=== PATIENT | male | born 1950 | race Caucasian/White ===

== ENCOUNTER 2024-01-16 21:23 | Inpatient (IN) | payer MEDICARE, SELFPAY ==
[2024-01-16 17:06] VITALS: BP 157/86
[2024-01-16] MEDS: TYLENOL 1000 MG PO (17:47)
[2024-01-16 17:51] LABS: % Basophils 0.5 % (0-2); % Eosinophils 0.1 % (0-6); % Immature Granulocytes 0.9 % (0-0.5); % Lymphocytes 8.4 % (20.5-51.1); % Monocytes 6.9 % (1.7-9.3); % Neutrophils 83.2 % (42.2-75.2); Absolute Basophils 0.1 10^3/uL (0-0.2); Absolute Immature Granulocytes 0.1 10^3/uL (0-0.05); Absolute Lymphocytes 0.9 10^3/uL (1.2-3.4); Absolute Monocytes 0.7 10^3/uL (0.1-0.6); Absolute Neutrophils 8.8 10^3/uL (1.4-6.5); Hemoglobin 10.9 g/dL (13.0-18.0); Mean Corp Hgb Conc. 36.3 g/dL (33.0-37.0); Mean Corpuscular Hgb 31.9 pg (27.0-31.0); Mean Corpuscular Volume 87.7 fL (80.0-94.0); Mean Platelet Volume 9.1 fL (7.4-10.4); Nucleated Red Blood Cells % 0 % (-); Platelet Count 405 10^3/uL (130-400); Red Blood Cell Count 3.42 10^6/uL (4.70-6.10); Red Cell Dist. Width 12.8 % (11.5-14.5); White Blood Cell Count 10.5 10^3/uL (4.8-10.8)
[2024-01-16 17:59] LABS: ALT (SGPT) 107 U/L (0-50); AST (SGOT) 112 U/L (17-59); Albumin 4.2 g/dl (3.5-5.0); Alkaline Phosphatase 101 U/L (38-126); Blood Urea Nitrogen 38 mg/dl (9-20); Calcium 9.4 mg/dl (8.4-10.2); Carbon Dioxide 22 mmol/L (22-30); Chloride 103 mmol/L (98-107); Glucose 114 mg/dl (70-99); Sodium 139 mmol/L (135-145); Total Bilirubin 0.6 mg/dl (0.2-1.3); Total Protein 7.3 g/dl (6.3-8.2); eGFR > 60.00
[2024-01-16 18:46] LABS: NT-proBNP 163 pg/ml; Troponin I < 0.012 ng/ml
[2024-01-16 18:55] LABS: COVID-19 Antigen Negative (Negative)
--- NOTE | 2024-01-16 19:54 | ED.GENMED ---
History of Present Illness
General
Chief Complaint: Cough
Time Seen by Provider: 01/16/24 18:27
History of Present Illness
History of Present Illness:
Patient is a 73-year-old man with history of hypertension, hyperlipidemia, prostate cancer in remission presenting to the emergency department with difficulty breathing. Patient states that he was diagnosed with COVID on January 02. He had COVID
last year and then developed pneumonia afterwards. He went to urgent care 5 days ago who still having shortness of breath and I started him on cefdinir. Today he had worsening difficulty breathing and a cough. He went to his doctor who was
worried about pneumonia so they sent him to the emergency department. He did not have an x-ray done at outside hospital which did show pneumonia. He has been having fevers and chills. No chest pain. No pleuritic pain. No leg swelling. No
history of blood clots. No nausea no vomiting. No diarrhea.
Phy Exam
Physical Exam
Physical Exam:
GENERAL: in no acute distress
HEENT: normocephalic, extraocular movements intact, moist oral mucosa
NECK: normal inspection
RESPIRATORY: no respiratory distress, coarse breath sounds worse on the left
CARDIOVASCULAR: regular rate and rhythm
ABDOMEN/: soft, non-distended, non-tender to palpation, no rebound or guarding
EXTREMITIES: non-tender, no edema/swelling
NEUROLOGIC: awake and alert, moves all extremities
SKIN: warm
Course
Orders/Labs/Results
Orders:
Orders
01/16/24 17:14
Electrocardiogram (*1) Urgent
Reason for Study: Shortness of Breath
EKG- Treatment ONCE
01/16/24 17:38
CMP [Comprehensive Metabolic Panel] Urgent
Complete Blood Count/With Diff Urgent
01/16/24 17:46
Acetaminophen [Tylenol] 1,000 mg PO NOW STA
01/16/24 18:10
NT-proBNP Urgent
Troponin I Urgent
01/16/24 18:27
CR Chest - 2 Views Urgent
Comment:
Reason For Exam: cough
01/16/24 18:38
COVID-19 Antigen Stat
Source: Nasal Swab
01/16/24 19:53
Cefepime HCl [Maxipime] 2,000 mg IV NOW STA
Vancomycin 1500 mg IVPB NOW Vancomycin [Vancocin] 1,500 mg 0.9% Sodium Chloride [Nss] 20 ml 0.9% Sodium Chloride 250 ml [Nss] 250 ml IV NOW
Abnormal Lab Results
01/16/24
17:38
RBC 3.42 L 10^6/uL
(4.70-6.10)
Hgb 10.9 L g/dL
(13.0-18.0)
Hct 30.0 L %
(39.0-52.0)
MCH 31.9 H pg
(27.0-31.0)
Plt Count 405 H 10^3/uL
(130-400)
Abs Immat Gran (auto) 0.1 H 10^3/uL
(0-0.05)
Absolute Neuts (auto) 8.8 H 10^3/uL
(1.4-6.5)
Absolute Lymphs (auto) 0.9 L 10^3/uL
(1.2-3.4)
Absolute Monos (auto) 0.7 H 10^3/uL
(0.1-0.6)
Immature Gran % 0.9 H %
(0-0.5)
Neutrophils % 83.2 H %
(42.2-75.2)
Lymphocytes % 8.4 L %
(20.5-51.1)
BUN 38 H mg/dl
(9-20)
Glucose 114 H mg/dl
(70-99)
AST 112 H U/L
(17-59)
ALT 107 H U/L
(0-50)
01/16/24 17:38
01/16/24 17:38
Vital Signs
Initial and Last Documented VS:
Initial Vital Signs
Temp Pulse Resp BP Pulse Ox
102.2 F H 105 18 157/86 90
01/16/24 17:06 01/16/24 17:06 01/16/24 17:06 01/16/24 17:06 01/16/24 17:06
Last Documented Vital Signs
Temp Pulse Resp BP Pulse Ox
102.2 F H 88 19 157/86 90
01/16/24 17:06 01/16/24 18:45 01/16/24 18:45 01/16/24 17:06 01/16/24 18:45
MDM/Problems Addressed
Differential Diagnosis Includes:
Patient is a 73-year-old male with history of hypertension, hyperlipidemia, prostate cancer status post prostatectomy and is in currently in remission presenting to the emergency department with shortness of breath and concerns for pneumonia on an
outside x-ray. Vitals here are notable for requiring nasal cannula at 4 L. Exam does show a coarse breath sounds at the left. Concern for pneumonia. Considered PE given history of cancer plus COVID recently however less likely given clinical
picture. If chest x-ray does not show any obvious signs of pneumonia will workup PE.
Blood work obtained does show a normal white count. COVID swab is negative. Chest x-ray per my interpretation with left lower lobe pneumonia. Given that he was on outpatient antibiotics we will place patient on cefepime and give vancomycin
given the recent COVID. Discussed with hospitalist who accepted patient to their service
*Critical Care Note
Total Time (30-74mins, 75-104mins- exclusive of procedures): Not Applicable
ED Attending Note
-
Portions of this chart may have been created with voice recognition software.� Occasional wrong word or��sound alike� substitutions may have occurred due to the inherent limitations of voice recognition software.
Discharge Plan
Departure
Patient Disposition: Admit
Date of Disposition: 01/16/24
Time of Disposition: 19:59
Presentation/result/management discussed w/ accepting MD/DO: Hospitalist
Discharge Problem:
Pneumonia
Referrals:
Osmar Altamirano MD [Family Provider] -
Interventions
Interventions:
*Risk Screen - Suicide Last Done: 01/16/24 18:21
*General Assessment Last Done: 01/16/24 18:21
*Neglect/Abuse Screening Last Done: 01/16/24 18:21
ED- Fall Risk Assessment Last Done: 01/16/24 18:21
*ED COVID-19 Vaccine History Last Done: 01/16/24 18:21
ED- Pulmonary Assessment Last Done: 01/16/24 18:21
Discharge Date and Time
Print Language: DANISH
[2024-01-16] MEDS: MAXIPIME 2000 MG IV (20:08)
--- NOTE | 2024-01-16 20:27 | HPS.HSE ---
Family Physician
-
Family Physician: Osmar Altamirano
Chief Complaint
-
shortness of breath
History of Present Illness
Mr. Jony Mahajan is a 73 yo man with hx HTN, HLD, prostate cancer in remission presents to the ER with shortness of breath. Patient was diagnosed with Covid on 01/02. His symptoms initially improved then got worse and he was seen at urgent care
and started on Cefdinir 5 days ago. He was also prescribed inhalers. He has not felt better since and so came to the ER. Patient was found to be febrile to 102.2 at arrival, he had not measured a fever this high at home.
+ some nausea in the morning and he states he vomited mucus. No abdominal pain. His cough is non-productive. He cannot lay down flat or he has persistent cough. He states inhalers have not helped with his breathing. No LE swelling. No rash. No
headache.
Medical History
Past Medical History
Past Medical History: Reports HTN, Hypercholesterolemia and Other (prostate cancer, in remission )
Past Surgical History: Reports Other
Social History
Tobacco: Non-smoker
Alcohol: Occasional
Family History
Family History: Not pertinent
Allergies / Home Medications
Allergies reflects when Allergies were last updated in [facility].
Home Medications with original date entered in [facility]
Allergy/Medication List:
Allergies
Allergy/AdvReac Type Severity Reaction Status Date / Time
No Known Allergies Allergy Unverified 01/16/24 17:13
Home Medications
albuterol sulfate 90 mcg/actuation aerosol inhaler 2 puff inhalation R QIDPRN PRN cough 01/16/24
amlodipine 5 mg tablet 5 mg PO DAILY 01/16/24
benazepril 20 mg tablet 20 mg PO DAILY 01/16/24
cefdinir 300 mg capsule 300 mg PO BID 01/16/24
cholecalciferol (vitamin D3) 25 mcg (1,000 unit) tablet 25 mcg PO DAILY 01/16/24
diphenhydramine HCl 25 mg capsule (Benadryl) 25 mg PO HS 01/16/24
famotidine 20 mg tablet 20 mg PO HS 01/16/24
hydrochlorothiazide 25 mg tablet 25 mg PO DAILY 01/16/24
metformin 1,000 mg tablet 1,000 mg PO .SEE BELOW 01/16/24
simvastatin 80 mg tablet 80 mg PO HS 01/16/24
Review of Systems
-
History Source: Patient
A 12 point ROS was completed and negative except as noted: Yes
Physical Exam
Vital Signs
Vital Signs
Temp Pulse Resp BP Pulse Ox
102.2 F H 88 16 157/86 90
01/16/24 17:06 01/16/24 18:45 01/16/24 20:00 01/16/24 17:06 01/16/24 18:45
Physical Exam
General: No Apparent Distress
HEENT: PERRLA
Respiratory: Other (cough on inspiration, no wheezing)
Cardiac: S1/S2 and Regular Rhythm
GI: Soft and Non Tender
Musculoskeletal: No Edema
Skin: Warm and Dry; No Rash
Neuro: AO x 3
Psych: Calm
Laboratory Results
-
01/16/24 17:38
01/16/24 17:38
Laboratory Results
Total Bilirubin 0.6 mg/dl (0.2-1.3) 01/16/24 17:38
AST 112 U/L (17-59) H 01/16/24 17:38
ALT 107 U/L (0-50) H 01/16/24 17:38
Alkaline Phosphatase 101 U/L (38-126) 01/16/24 17:38
Troponin I < 0.012 ng/ml 01/16/24 18:10
Data Reviewed
-
Diagnostic Radiology: Report Reviewed by me
Lab Data: Labs Reviewed by me
Impression/Plan
-
Mr. Jony Mahajan is a 73 yo man with hx HTN, HLD, prostate cancer in remission presents to the ER with shortness of breath. Patient was diagnosed with Covid on 01/02. His symptoms initially improved then got worse and he was seen at urgent care
and started on Cefdinir 5 days ago. He presents to the ER with worsening cough and shortness of breath, + fevers.
Triage VS: T 102.2, P 105, RR 18, BP 157/86, SpO2 90%
LABS: WBC 10.5, Hg 10.9, PLT 405, Na 139, K+ 4.0, BUN 38, Cr 0.9, Glucose 114, T. Bili 0.6, AST 112, ALT 107, Trop < 0.012, BNP 163
covid negative
IMPRESSION:
Left basilar pneumonia.
MAR: Cefepime/Vanco
Sepsis
Left Lower Lobe Pneumonia
Hypoxic Respiratory Insufficiency
-add on lactate and blood culture (after abx given)
-admit to telemetry
-O2 support as needed, currently on 4L
-s/p Vanc/Cefepime in ER. Will add on Azithromycin for atypical coverage and continue Cefepime
-F/U MRSA swab, Legionall Ab testing and strep pneumo testing
-500cc bolus now and 1L running IVF overnight
-Mucinex BID, Acapella
Transaminitis in setting of sepsis
-no abdominal pain
-will trend
Essential Hypertension
-hold BEAM MACHINE OPERATOR HCTZ
-continue BEAM MACHINE OPERATOR Amlodipine and Benazepril, hypertensive in ER
Hyperlipidemia
-BEAM MACHINE OPERATOR Simvastatin
Metformin is on home med list but patient states he doesn't have diabetes
-F/U AM A1c
DVT PPx Lovenox subQ
FULL CODE
76 minutes spent on patient evaluation, medical decision making, coordination of care
[2024-01-16] MEDS: VANCOCIN 300 ML IV (20:39)
[2024-01-16] MEDS: VANCOCIN 300 MG IV (20:39)
[2024-01-16] MEDS: ZITHROMAX INFUSION 250 IV (20:43)
[2024-01-16] MEDS: NSS 500 IV (21:05)
[2024-01-16 21:38] LABS: Lactic Acid 1.1 mmol/L (0.7-2.0)
[2024-01-16 22:28] VITALS: BMI 24.2
[2024-01-16] MEDS: MUCINEX 600 MG PO (22:37)
[2024-01-16] MEDS: NSS 1000 IV (22:37)
[2024-01-16] MEDS: LIPITOR 40 MG PO (22:37)
[2024-01-16] MEDS: PEPCID 20 MG PO (22:37)
[2024-01-16 22:46] VITALS: BP 133/74
--- NOTE | 2024-01-17 00:07 | PTCARENOTE ---
Patient arrived to unit via stretcher with dx of LLL PNA. AAOX3. Pleasant and cooperative with care. Steady on feet and with ambulation. Harsh dry, non productive cough. 4 liter 02. Oriented to unit. Call schneider within reach. Educated that patient
must call for assistance. Patient stated understanding and compliance with call schneider.
[2024-01-17] MEDS: ROBITUSSIN DM 10 ML PO ×2 (00:33→05:41)
[2024-01-17 03:38] VITALS: BP 129/67
[2024-01-17] MEDS: MAXIPIME 2000 MG IV ×3 (05:24→21:44)
[2024-01-17] MEDS: STERILE WATER FOR INJECTION 10 ML IV ×3 (05:25→21:44)
--- NOTE | 2024-01-17 07:25 | W.PN.HOSP.TC ---
Today's Communication/Plan
-
cont abx
duoneb prn
mucinex
follow cultures MRSA screen
Assessment / Plan
Assessment / Plan
Physical Exam
General: No Apparent Distress
HEENT: PERRLA
Respiratory: cough on inspiration, no wheezing
Cardiac: S1/S2 and Regular Rhythm
GI: Soft and Non Tender
Musculoskeletal: No Edema
Skin: Warm and Dry; No Rash
Neuro: AO x 3
Psych: Calm
Mr. Jony Mahajan is a 73 yo man with hx HTN, HLD, prostate cancer in remission presents to the ER with shortness of breath. Patient was diagnosed with Covid on 01/02. His symptoms initially improved then got worse and he was seen at urgent care
and started on Cefdinir 5 days ago. He presents to the ER with worsening cough and shortness of breath, + fevers.
Triage VS: T 102.2, P 105, RR 18, BP 157/86, SpO2 90%
LABS: WBC 10.5, Hg 10.9, PLT 405, Na 139, K+ 4.0, BUN 38, Cr 0.9, Glucose 114, T. Bili 0.6, AST 112, ALT 107, Trop < 0.012, BNP 163
covid negative
IMPRESSION:
Left basilar pneumonia.
MAR: Cefepime/Vanco
Sepsis
Left Lower Lobe Pneumonia
Hypoxic Respiratory Insufficiency
-tele admit
-O2 support as needed, currently on 4L
-s/p Vanc/Cefepime in ER. continue Cefepime Azithromycin
-F/U MRSA swab, Legionall Ab testing and strep pneumo testing
-Mucinex BID, Acapella
Transaminitis in setting of sepsis
-no abdominal pain
-trend
Essential Hypertension
-hold PHYSICAL METEOROLOGIST HCTZ
-continue PHYSICAL METEOROLOGIST Amlodipine and Benazepril, hypertensive in ER
Hyperlipidemia
-PHYSICAL METEOROLOGIST Simvastatin
Prediabetic
-A1c 6.2
DVT PPx Lovenox subQ
FULL CODE
55 minutes spent on patient evaluation, medical decision making, coordination of care
Anticipated Discharge: 24 - 48 hours
Subjective/Interval History
-
Date of Service: January 17, 2024
No acute distress. Appears comfortable at this time.
Objective Data
-
Labs:
Laboratory Results
01/17/24
06:00
WBC Pending
Hgb Pending
Hct Pending
Plt Count Pending
Sodium Pending
Potassium Pending
Chloride Pending
Carbon Dioxide Pending
BUN Pending
Creatinine Pending
Glucose Pending
Calcium Pending
Total Bilirubin Pending
AST Pending
ALT Pending
Alkaline Phosphatase Pending
Vital Signs:
Vital Signs
Temp Pulse Resp BP Pulse Ox
98.1 F 91 18 129/67 93
01/17/24 03:38 01/17/24 03:38 01/17/24 03:38 01/17/24 03:38 01/17/24 03:38
I&O
01/16/24 01/17/24 01/18/24
06:59 06:59 06:59
Intake Total 240 / 240
Output Total 350 / 350
Balance -110 / -110
[2024-01-17 07:30] VITALS: BP 146/76
[2024-01-17] MEDS: VISBIOME 1 CAP PO (07:46)
[2024-01-17] MEDS: MUCINEX 600 MG PO ×2 (07:47→19:30)
[2024-01-17] MEDS: ZESTRIL 20 MG PO (07:47)
[2024-01-17] MEDS: NORVASC 5 MG PO (07:48)
[2024-01-17] MEDS: DUONEB 3 ML INH ×4 (07:51→19:32)
[2024-01-17 09:51] LABS: % Basophils 0.3 % (0-2); % Immature Granulocytes 0.6 % (0-0.5); % Lymphocytes 6.2 % (20.5-51.1); % Monocytes 4.9 % (1.7-9.3); Absolute Immature Granulocytes 0.1 10^3/uL (0-0.05); Absolute Lymphocytes 0.8 10^3/uL (1.2-3.4); Absolute Monocytes 0.7 10^3/uL (0.1-0.6); Absolute Neutrophils 11.9 10^3/uL (1.4-6.5); Hematocrit 31.6 % (39.0-52.0); Hemoglobin 10.9 g/dL (13.0-18.0); Mean Corp Hgb Conc. 34.5 g/dL (33.0-37.0); Mean Corpuscular Hgb 32.3 pg (27.0-31.0); Mean Corpuscular Volume 93.8 fL (80.0-94.0); Mean Platelet Volume 8.5 fL (7.4-10.4); Nucleated Red Blood Cells % 0 % (-); Platelet Count 378 10^3/uL (130-400); Red Blood Cell Count 3.37 10^6/uL (4.70-6.10); Red Cell Dist. Width 12.9 % (11.5-14.5); White Blood Cell Count 13.5 10^3/uL (4.8-10.8)
[2024-01-17 10:07] LABS: ALT (SGPT) 86 U/L (0-50); AST (SGOT) 65 U/L (17-59); Albumin 3.8 g/dl (3.5-5.0); Alkaline Phosphatase 100 U/L (38-126); Blood Urea Nitrogen 33 mg/dl (9-20); Calcium 9.1 mg/dl (8.4-10.2); Carbon Dioxide 23 mmol/L (22-30); Chloride 104 mmol/L (98-107); Direct Bilirubin 0.3 mg/dl (0.0-0.4); Estimated Creatinine Clearance 73 ml/min; Glucose 168 mg/dl (70-99); Magnesium 2.3 mg/dl (1.6-2.3); Potassium 3.8 mmol/L (3.5-5.1); Sodium 141 mmol/L (135-145); Total Bilirubin 0.6 mg/dl (0.2-1.3); Total Protein 6.7 g/dl (6.3-8.2); eGFR > 60.00
[2024-01-17 11:05] VITALS: BP 128/18
[2024-01-17 11:11] LABS: Glycohemoglobin (HgbA1c) 6.2 % (4.0-5.6)
[2024-01-17 15:38] VITALS: BP 101/80
--- NOTE | 2024-01-17 17:00 | CM ---
Patient seen at bedside.
IA completed.
Case consult completed. Information on Advanced Directives explained & given to patient
DX: LLL PNA
PMH: htn, hdl, prostate ca in remission
Patient lives in a 2 story home, but lives on 1st floor with bed and bath.
PLOF: Independent using no AD & driving
PCP: Osmar Altamirano
Pharmacy: [facility]
PLAN: Discharge when medically stable. Currently no needs anticipated.
[2024-01-17] MEDS: LOVENOX 40 MG SC (17:17)
[2024-01-17] MEDS: TESSALON PERLES 200 MG PO (17:20)
[2024-01-17 19:15] VITALS: BP 110/85
[2024-01-17] MEDS: LIPITOR 40 MG PO (19:30)
[2024-01-17] MEDS: PEPCID 20 MG PO (19:30)
[2024-01-17] MEDS: ZITHROMAX 500 MG PO (19:30)
[2024-01-17 23:02] VITALS: BP 110/85
[2024-01-18 03:13] VITALS: BP 137/75
[2024-01-18] MEDS: MAXIPIME 2000 MG IV ×3 (05:38→23:12)
[2024-01-18] MEDS: STERILE WATER FOR INJECTION 10 ML IV ×3 (05:38→23:12)
[2024-01-18 07:00] VITALS: BP 119/73
[2024-01-18] MEDS: DUONEB 3 ML INH ×2 (07:27→11:18)
--- NOTE | 2024-01-18 07:39 | W.PN.HOSP.TC ---
Today's Communication/Plan
-
wean O2 as tolerated
check CT chest
duonebs switched to xopenex d/t tachycardia
Assessment / Plan
Assessment / Plan
Physical Exam
General: No Apparent Distress
HEENT: PERRLA
Respiratory: cough on inspiration, no wheezing
Cardiac: S1/S2 and Regular Rhythm
GI: Soft and Non Tender
Musculoskeletal: No Edema
Skin: Warm and Dry; No Rash
Neuro: AO x 3
Psych: Calm
Mr. Jony Mahajan is a 73 yo man with hx HTN, HLD, prostate cancer in remission presents to the ER with shortness of breath. Patient was diagnosed with Covid on 01/02. His symptoms initially improved then got worse and he was seen at urgent care
and started on Cefdinir 5 days ago. He presents to the ER with worsening cough and shortness of breath, + fevers.
Triage VS: T 102.2, P 105, RR 18, BP 157/86, SpO2 90%
LABS: WBC 10.5, Hg 10.9, PLT 405, Na 139, K+ 4.0, BUN 38, Cr 0.9, Glucose 114, T. Bili 0.6, AST 112, ALT 107, Trop < 0.012, BNP 163
covid negative
IMPRESSION:
Left basilar pneumonia.
MAR: Cefepime/Vanco
Sepsis
Left Lower Lobe Pneumonia
Hypoxic Respiratory Insufficiency
-tele admit
-O2 support as needed, wean as tolerated
-s/p Vanc/Cefepime in ER. continue Cefepime Azithromycin
-F/U MRSA swab, Legionall Ab testing and strep pneumo testing
-Mucinex BID, Acapella
-CT chest
Transaminitis in setting of sepsis
-no abdominal pain
-trend
Essential Hypertension
-hold CHOIR ACCOMPANIST HCTZ
-continue CHOIR ACCOMPANIST Amlodipine and Benazepril, hypertensive in ER
Hyperlipidemia
-CHOIR ACCOMPANIST Simvastatin
Prediabetic
-A1c 6.2
DVT PPx Lovenox subQ
FULL CODE
55 minutes spent on patient evaluation, medical decision making, coordination of care
Anticipated Discharge: 24 - 48 hours
Subjective/Interval History
-
Date of Service: January 18, 2024
oxygen requirement improving. Orthopnea however persists.
Objective Data
-
Labs:
Laboratory Results
01/18/24
07:30
WBC Pending
Hgb Pending
Hct Pending
Plt Count Pending
Sodium Pending
Potassium Pending
Chloride Pending
Carbon Dioxide Pending
BUN Pending
Creatinine Pending
Glucose Pending
Calcium Pending
Total Bilirubin Pending
AST Pending
ALT Pending
Alkaline Phosphatase Pending
Vital Signs:
Vital Signs
Temp Pulse Resp BP Pulse Ox
97.3 F 110 22 137/75 92
01/18/24 03:13 01/18/24 07:29 01/18/24 07:29 01/18/24 03:13 01/18/24 07:29
I&O
01/17/24 01/18/24 01/19/24
06:59 06:59 06:59
Intake Total 240 / 240 720 / 720
Output Total 350 / 350
Balance -110 / -110 720 / 720
[2024-01-18 08:17] LABS: Hematocrit 32.5 % (39.0-52.0); Mean Corp Hgb Conc. 33.8 g/dL (33.0-37.0); Mean Corpuscular Hgb 32.1 pg (27.0-31.0); Mean Corpuscular Volume 94.8 fL (80.0-94.0); Mean Platelet Volume 8.8 fL (7.4-10.4); Platelet Count 426 10^3/uL (130-400); Red Blood Cell Count 3.43 10^6/uL (4.70-6.10); Red Cell Dist. Width 13.1 % (11.5-14.5); White Blood Cell Count 14.8 10^3/uL (4.8-10.8)
[2024-01-18 08:50] LABS: ALT (SGPT) 126 U/L (0-50); AST (SGOT) 93 U/L (17-59); Albumin 3.8 g/dl (3.5-5.0); Alkaline Phosphatase 109 U/L (38-126); Blood Urea Nitrogen 36 mg/dl (9-20); Calcium 9.3 mg/dl (8.4-10.2); Carbon Dioxide 24 mmol/L (22-30); Chloride 104 mmol/L (98-107); Estimated Creatinine Clearance 73 ml/min; Glucose 138 mg/dl (70-99); Magnesium 2.5 mg/dl (1.6-2.3); Phosphorus 3.6 mg/dl (2.5-4.5); Potassium 3.9 mmol/L (3.5-5.1); Sodium 142 mmol/L (135-145); Total Bilirubin 0.6 mg/dl (0.2-1.3); eGFR > 60.00
[2024-01-18] MEDS: ZESTRIL 20 MG PO (09:09)
[2024-01-18] MEDS: ROBITUSSIN DM 10 ML PO (09:09)
[2024-01-18] MEDS: VISBIOME 1 CAP PO (09:09)
[2024-01-18] MEDS: NORVASC 5 MG PO (09:09)
[2024-01-18] MEDS: MUCINEX 600 MG PO ×2 (09:09→20:15)
[2024-01-18 11:12] VITALS: BP 138/76
[2024-01-18] MEDS: TESSALON PERLES 200 MG PO ×2 (12:07→20:15)
[2024-01-18] MEDS: XOPENEX 0.63 MG INHALANT SOLUTION INH ×2 (13:42→19:52)
[2024-01-18 15:32] VITALS: BP 124/66
[2024-01-18] MEDS: LOVENOX 40 MG SC (17:22)
[2024-01-18 19:16] VITALS: BP 143/67
[2024-01-18] MEDS: ZITHROMAX 500 MG PO (20:15)
[2024-01-18] MEDS: PEPCID 20 MG PO (20:15)
[2024-01-18] MEDS: LIPITOR 40 MG PO (20:15)
[2024-01-18 23:17] VITALS: BP 132/70
[2024-01-19 03:01] VITALS: BP 114/60
[2024-01-19] MEDS: STERILE WATER FOR INJECTION 10 ML IV ×3 (06:36→21:59)
[2024-01-19] MEDS: MAXIPIME 2000 MG IV ×3 (06:36→22:00)
[2024-01-19] MEDS: XOPENEX 0.63 MG INHALANT SOLUTION INH ×4 (07:27→20:03)
--- NOTE | 2024-01-19 07:35 | W.PN.HOSP.TC ---
Today's Communication/Plan
-
cont abx
bronchodilators
wean O2 supplementation as tolerated
Assessment / Plan
Assessment / Plan
Physical Exam
General: No Apparent Distress
HEENT: PERRLA
Respiratory: cough on inspiration, no wheezing
Cardiac: S1/S2 and Regular Rhythm
GI: Soft and Non Tender
Musculoskeletal: No Edema
Skin: Warm and Dry; No Rash
Neuro: AO x 3
Psych: Calm
Mr. Jony Mahajan is a 73 yo man with hx HTN, HLD, prostate cancer in remission presents to the ER with shortness of breath. Patient was diagnosed with Covid on 01/02. His symptoms initially improved then got worse and he was seen at urgent care
and started on Cefdinir 5 days ago. He presents to the ER with worsening cough and shortness of breath, + fevers.
Triage VS: T 102.2, P 105, RR 18, BP 157/86, SpO2 90%
LABS: WBC 10.5, Hg 10.9, PLT 405, Na 139, K+ 4.0, BUN 38, Cr 0.9, Glucose 114, T. Bili 0.6, AST 112, ALT 107, Trop < 0.012, BNP 163
covid negative
IMPRESSION:
Left basilar pneumonia.
MAR: Cefepime/Vanco
Sepsis
Left Lower Lobe Pneumonia
Hypoxic Respiratory Insufficiency
-tele admit
-O2 support as needed, wean as tolerated
-s/p Vanc/Cefepime in ER. continue Cefepime Azithromycin
-MRSA swab, Legionall Ab testing and strep pneumo testing Negative
-Mucinex BID, Acapella
-CT chest appreciated no PE, pneumonia, right 5 mm pulm nodule known to patient follow up with primary recommended.
Transaminitis in setting of sepsis
-no abdominal pain
-trend
Essential Hypertension
-hold CAUSTIC LIQUOR MAKER HCTZ
-continue CAUSTIC LIQUOR MAKER Amlodipine and Benazepril
Hyperlipidemia
-CAUSTIC LIQUOR MAKER Simvastatin
Prediabetic
-A1c 6.2
DVT PPx Lovenox subQ
FULL CODE
55 minutes spent on patient evaluation, medical decision making, coordination of care
Anticipated Discharge: 24 - 48 hours
Subjective/Interval History
-
Date of Service: January 19, 2024
No acute distress. Reports overall improvement in symptoms. Oxygen requirement weaning down.
Objective Data
-
Labs:
Laboratory Results
01/19/24
06:00
WBC Pending
Hgb Pending
Hct Pending
Plt Count Pending
Sodium Pending
Potassium Pending
Chloride Pending
Carbon Dioxide Pending
BUN Pending
Creatinine Pending
Glucose Pending
Calcium Pending
Total Bilirubin Pending
AST Pending
ALT Pending
Alkaline Phosphatase Pending
Vital Signs:
Vital Signs
Temp Pulse Resp BP Pulse Ox
98.1 F 92 18 114/60 92
01/19/24 03:01 01/19/24 07:29 01/19/24 07:29 01/19/24 03:01 01/19/24 07:29
I&O
01/18/24 01/19/24 01/20/24
06:59 06:59 06:59
Intake Total 720 / 720 1380 / 1380
Balance 720 / 720 1380 / 1380
[2024-01-19 08:46] VITALS: BP 128/84
[2024-01-19] MEDS: ZESTRIL 20 MG PO (08:49)
[2024-01-19] MEDS: VISBIOME 1 CAP PO (08:49)
[2024-01-19] MEDS: MUCINEX 600 MG PO ×2 (08:49→20:36)
[2024-01-19] MEDS: NORVASC 5 MG PO (08:49)
[2024-01-19 09:14] LABS: Hematocrit 30.9 % (39.0-52.0); Hemoglobin 10.4 g/dL (13.0-18.0); Mean Corp Hgb Conc. 33.7 g/dL (33.0-37.0); Mean Corpuscular Hgb 31.9 pg (27.0-31.0); Mean Corpuscular Volume 94.8 fL (80.0-94.0); Mean Platelet Volume 8.5 fL (7.4-10.4); Platelet Count 401 10^3/uL (130-400); Red Blood Cell Count 3.26 10^6/uL (4.70-6.10); Red Cell Dist. Width 13.2 % (11.5-14.5); White Blood Cell Count 11.6 10^3/uL (4.8-10.8)
[2024-01-19 10:18] LABS: ALT (SGPT) 123 U/L (0-50); AST (SGOT) 85 U/L (17-59); Albumin 3.4 g/dl (3.5-5.0); Alkaline Phosphatase 99 U/L (38-126); Blood Urea Nitrogen 38 mg/dl (9-20); Calcium 9.2 mg/dl (8.4-10.2); Carbon Dioxide 23 mmol/L (22-30); Chloride 106 mmol/L (98-107); Estimated Creatinine Clearance 82 ml/min; Glucose 160 mg/dl (70-99); Magnesium 2.4 mg/dl (1.6-2.3); Phosphorus 3.1 mg/dl (2.5-4.5); Potassium 4.2 mmol/L (3.5-5.1); Sodium 141 mmol/L (135-145); Total Bilirubin 0.6 mg/dl (0.2-1.3); Total Protein 6.5 g/dl (6.3-8.2); eGFR > 60.00
[2024-01-19] MEDS: TESSALON PERLES 200 MG PO ×2 (12:44→20:39)
[2024-01-19] MEDS: ROBITUSSIN DM 10 ML PO (14:43)
[2024-01-19 15:00] VITALS: BP 128/79
[2024-01-19 15:35] LABS: NT-proBNP 75.9 pg/ml
--- NOTE | 2024-01-19 15:44 | CM ---
Patient seen bedside, reports no needs to CM at this time. Patient remains on O2, not on home O2. CM will watch for home O2/VN needs. CM will continue to follow for all discharge planning needs.
Plan; home no needs, watch for home O2 needs.
[2024-01-19] MEDS: LOVENOX 40 MG SC (17:09)
[2024-01-19 19:55] VITALS: BP 122/65
[2024-01-19] MEDS: ZITHROMAX 500 MG PO (20:36)
[2024-01-19] MEDS: LIPITOR 40 MG PO (21:59)
[2024-01-19] MEDS: PEPCID 20 MG PO (21:59)
[2024-01-19 23:25] VITALS: BP 129/73
[2024-01-20] VITALS (7 sets, daily range): BP systolic 110–141; BP diastolic 57–75; PULSE 84; O2SAT 96
[2024-01-20] MEDS: STERILE WATER FOR INJECTION 10 ML IV ×3 (05:48→21:06)
[2024-01-20] MEDS: MAXIPIME 2000 MG IV ×3 (05:49→21:06)
[2024-01-20] MEDS: XOPENEX 0.63 MG INHALANT SOLUTION INH ×3 (07:14→20:14)
--- NOTE | 2024-01-20 07:34 | W.PN.HOSP.TC ---
Today's Communication/Plan
-
cont abx
start steroids
cont bronchodilators
Pulm eval
Assessment / Plan
Assessment / Plan
Physical Exam
General: No Apparent Distress
HEENT: PERRLA
Respiratory: wheezing
Cardiac: S1/S2 and Regular Rhythm
GI: Soft and Non Tender
Musculoskeletal: No Edema
Skin: Warm and Dry; No Rash
Neuro: AO x 3
Psych: Calm
Mr. Jony Mahajan is a 73 yo man with hx HTN, HLD, prostate cancer in remission presents to the ER with shortness of breath. Patient was diagnosed with Covid on 01/02. His symptoms initially improved then got worse and he was seen at urgent care
and started on Cefdinir 5 days ago. He presents to the ER with worsening cough and shortness of breath, + fevers.
Triage VS: T 102.2, P 105, RR 18, BP 157/86, SpO2 90%
LABS: WBC 10.5, Hg 10.9, PLT 405, Na 139, K+ 4.0, BUN 38, Cr 0.9, Glucose 114, T. Bili 0.6, AST 112, ALT 107, Trop < 0.012, BNP 163
covid negative
IMPRESSION:
Left basilar pneumonia.
MAR: Cefepime/Vanco
Sepsis
Left Lower Lobe Pneumonia
Hypoxic Respiratory Insufficiency
-tele admit
-O2 support as needed, wean as tolerated
-s/p Vanc/Cefepime in ER. continue Cefepime Azithromycin
-MRSA swab, Legionall Ab testing and strep pneumo testing Negative
-Mucinex BID, Acapella
-CT chest appreciated no PE, pneumonia, right 5 mm pulm nodule known to patient follow up with primary recommended.
wheezing
-started prednisone 40 mg daily
-pulm eval requested
Transaminitis in setting of sepsis
-no abdominal pain
-trend
Essential Hypertension
-hold SAL[employer]AGE INS[employer]S HCTZ
-continue [employer] INS[employer] Amlodipine and Benazepril
Hyperlipidemia
-SAL[employer] INS[employer]S Simvastatin
Prediabetic
-A1c 6.2
DVT PPx Lovenox subQ
FULL CODE
55 minutes spent on patient evaluation, medical decision making, coordination of care
Anticipated Discharge: 24 - 48 hours
Subjective/Interval History
-
Date of Service: January 20, 2024
Weaning down on oxygen supplementation 2L. Cough persists, exacerbated by lying flat.
Objective Data
-
Labs:
Laboratory Results
01/20/24 01/20/24
07:29 07:30
WBC Pending
Hgb Pending
Hct Pending
Plt Count Pending
Sodium Pending
Potassium Pending
Chloride Pending
Carbon Dioxide Pending
BUN Pending
Creatinine Pending
Glucose Pending
Calcium Pending
Total Bilirubin Pending
AST Pending
ALT Pending
Alkaline Phosphatase Pending
Vital Signs:
Vital Signs
Temp Pulse Resp BP Pulse Ox
98.1 F 81 18 126/70 95
01/20/24 03:00 01/20/24 07:16 01/20/24 07:16 01/20/24 03:00 01/20/24 07:16
I&O
01/19/24 01/20/24 01/21/24
06:59 06:59 06:59
Intake Total 1380 / 1380 360 / 360 240 / 240
Balance 1380 / 1380 360 / 360 240 / 240
[2024-01-20] MEDS: VISBIOME 1 CAP PO (08:25)
[2024-01-20] MEDS: MUCINEX 600 MG PO (08:25)
[2024-01-20] MEDS: NORVASC 5 MG PO (08:25)
[2024-01-20] MEDS: ZESTRIL 20 MG PO (08:25)
[2024-01-20 08:31] LABS: ALT (SGPT) 136 U/L (0-50); AST (SGOT) 85 U/L (17-59); Albumin 3.4 g/dl (3.5-5.0); Alkaline Phosphatase 104 U/L (38-126); Blood Urea Nitrogen 34 mg/dl (9-20); Carbon Dioxide 24 mmol/L (22-30); Chloride 106 mmol/L (98-107); Estimated Creatinine Clearance 82 ml/min; Glucose 136 mg/dl (70-99); Magnesium 2.3 mg/dl (1.6-2.3); Phosphorus 3.3 mg/dl (2.5-4.5); Potassium 4.1 mmol/L (3.5-5.1); Sodium 141 mmol/L (135-145); Total Bilirubin 0.6 mg/dl (0.2-1.3); Total Protein 6.5 g/dl (6.3-8.2); eGFR > 60.00
[2024-01-20 08:31] LABS: Hemoglobin 9.8 g/dL (13.0-18.0); Mean Corp Hgb Conc. 33.8 g/dL (33.0-37.0); Mean Corpuscular Hgb 31.4 pg (27.0-31.0); Mean Corpuscular Volume 92.9 fL (80.0-94.0); Mean Platelet Volume 8.7 fL (7.4-10.4); Platelet Count 448 10^3/uL (130-400); Red Blood Cell Count 3.12 10^6/uL (4.70-6.10); Red Cell Dist. Width 13.1 % (11.5-14.5); White Blood Cell Count 7.3 10^3/uL (4.8-10.8)
[2024-01-20] MEDS: DELTASONE 40 MG PO (12:30)
--- NOTE | 2024-01-20 12:50 | CON.PUL ---
Consultation
Consultation Request
Date/Time Consultation Requested: 01/20/2024 - 1111
Date/Time Consultation Performed: 01/20/2024 - 1205
Requesting Provider: Dr. Adame
Performing Provider: Dr. Bangura
Reason for Consultation: Hypoxia/SOB
Medical History
-
Chief Complaint: SOB
History of Present Illness:
73-year-old male never smoker with a past medical history of hypertension, hyperlipidemia and prostate cancer currently in remission who presents with abnormal CXR + SOB. Patient reportedly diagnosed with COVID-19 on 01/03/2024. Symptoms worsened
and he went to urgent care [employer]IGN SALES CONSULTANT and given cefdinir which she started 5 days [employer] SAL[employer]. Also prescribed inhalers. Symptoms did not improve so he came to the ER. Initial vitals in the ER showed he was febrile to 102.2 �F, slightly tachycardic to 105 bpm,
breathing at 18 breaths/min, BP 157/86 and saturating 90% on room air. He was placed onto 2 L/min and saturations improved to 94%. Initial labs showed Hb 10.9, platelets 4 5, AST 112, ALT 107, troponin negative at <0.012 and COVID antigen
negative. Blood culture was collected. CXR showed left basilar pneumonia. He was given cefepime in the ER, as well as vancomycin/Zithromax as well as IVF with NS 0.9% x 500 cc. He was admitted to the hospitalist service, and required 4-5 L/min
nasal cannula. Pulmonary service now consulted for additional management/recommendations.
When I saw the patient he was resting in bed in no acute distress on 2 L/min nasal cannula. He still has a dry cough intermittently productive of phlegm which is white/yellow. He feels overall tired and says his breathing is 'fair.' He denies a
history of lung disease, and does not follow-up with a refrigeration system installer as an outpatient. He currently denies chest pain, IVORY, nausea, fevers chills.
PMHx: HTN, HLD, Hx of prostate cancer in remission
PSHx:
Past Medical History
Past Medical History: Other (Above as per HPI)
Past Surgical History: Other (Above as per HPI)
Social History
Tobacco: Non-smoker
Alcohol: Occasional
Drug: None
Family History
Family History: Reviewed & Not Pertinent
Allergies / Home Medications
Allergies
Allergy/AdvReac Type Severity Reaction Status Date / Time
No Known Allergies Allergy Unverified 01/16/24 17:13
Home Medications
�Medication �Instructions �Recorded �Confirmed �Last Taken �Type
albuterol sulfate 90 mcg/actuation 2 puff inhalation R QIDPRN PRN 01/16/24 01/16/24 Unknown History
aerosol inhaler cough
amlodipine 5 mg tablet 5 mg PO DAILY 01/16/24 01/16/24 01/16/24 History
benazepril 20 mg tablet 20 mg PO DAILY 01/16/24 01/16/24 01/16/24 History
cefdinir 300 mg capsule 300 mg PO BID 01/16/24 01/16/24 01/16/24 History
cholecalciferol (vitamin D3) 25 25 mcg PO DAILY 01/16/24 01/16/24 Unknown History
mcg (1,000 unit) tablet
diphenhydramine HCl 25 mg capsule 25 mg PO HS 01/16/24 01/16/24 01/15/24 History
(Benadryl)
famotidine 20 mg tablet 20 mg PO HS 01/16/24 01/16/24 01/15/24 History
hydrochlorothiazide 25 mg tablet 25 mg PO DAILY 01/16/24 01/16/24 01/16/24 History
metformin 1,000 mg tablet 1,000 mg PO .SEE BELOW 01/16/24 01/16/24 Unknown History
simvastatin 80 mg tablet 80 mg PO HS 01/16/24 01/16/24 1 Week Ago History
~01/09/24
Review of Systems
-
History Source: Patient
All other systems: Negative unless noted (12 point ROS performed and is negative unless mentioned above.)
Vitals / Labs / Diagnostic Testing
Vital Signs
Temp Pulse Resp BP Pulse Ox
98.6 F 82 16 110/66 94
01/20/24 15:00 01/20/24 15:00 01/20/24 15:00 01/20/24 15:00 01/20/24 15:00
Lab Data
01/20/24 07:30
01/20/24 07:29
Microbiology
01/16/24 21:06 Blood/Venous Blood Culture - Preliminary
No Growth in 72 hours- Final report to follow
01/16/24 22:55 Nose MRSA Screen - Final
No Methicillin Resistant Staphylococcus aureus isolated.
Diagnostic Testing:
Physical Exam
-
HEENT: Normocephalic and Anicteric
Cardiovascular: S1/S2 and Peripheral Edema (+2 lower extremity pitting edema bilaterally)
Respiratory: Wheeze (negative), Rales (Right midlung), Rhonchi (Right midlung) and Non-Labored Respirations
GI: Soft, Non Distended, Non Tender and Normal Bowel Sounds
Neurology: AO x 3 and Tremors (negative)
Skin: Warm and Dry
General: Respiratory Distress (negative), Comfortable, Chills (negative) and Sweats (negative)
Assessment
-
Assessment: 73-year-old male never smoker with a past medical history of hypertension, hyperlipidemia and prostate cancer currently in remission who presents with abnormal CXR + SOB. Patient reportedly diagnosed with COVID-19 on 01/03/2024.
Symptoms worsened and he went to urgent care [employer] SAL[employer] and given cefdinir which she started 5 days [employer] SALES CONS[employer]ANT. Also prescribed inhalers. Symptoms did not improve so he came to the ER. Initial vitals in the ER showed he was febrile to 102.2 �F, slightly
tachycardic to 105 bpm, breathing at 18 breaths/min, BP 157/86 and saturating 90% on room air. He was placed onto 2 L/min and saturations improved to 94%. Initial labs showed Hb 10.9, platelets 4 5, AST 112, ALT 107, troponin negative at <0.012
and COVID antigen negative. Blood culture was collected. CXR showed left basilar pneumonia. He was given cefepime in the ER, as well as vancomycin/Zithromax as well as IVF with NS 0.9% x 500 cc. He was admitted to the hospitalist service, and
required 4-5 L/min nasal cannula. Pulmonary service now consulted for additional management/recommendations.
Chronic conditions [employer] SALES [employer]: HTN, HLD, Hx of prostate cancer in remission
Impression:
#Bilateral lower lobe CAP
#Cough due to above
#Acute respiratory failure with hypoxia on supplemental oxygen
#Reported history of recent COVID-19 (diagnosed 01/03/2024)
#Multiple pulmonary nodules involving RLL + right oblique fissure (due to intrafissural lymph node)
#Anemia
#Transaminitis with elevated AST + ALT
Plan:
- Continue with broad-spectrum antibiotics
- Currently on cefepime; s/p 1.75g of zithromax (last dose 01/18)
- Would complete 7 days total of ABx assuming he continues to clinically improve and remains afebrile for 48 hours prior to stopping antibiotics
- CT chest from 01/18/2024 shows lower lobe predominant bronchial wall thickening with bilateral lower lobe consolidations/patchy opacities/tree-in-bud nodules
- Prednisone was started today at 40 mg daily - wean as tolerated
- Mucolytics
- Continue nebulized bronchodilators - currently on xopenx --> will add Symbicort 160mcg that he should continue upon discharge until his cough has resolved
- Continue prn xopenex (he was tachycardic from admission to 01/17)
- Maintain SpO2 >90-94% with supplemental O2 and wean as tolerated; check ambulatory pulse oximetry prior to discharge to assess if O2 is needed
- Incentive spirometer encouraged
- Replete electrolytes with K>4, Mg>2
- Trend LFTs
- Transfuse blood products if needed to keep Hb>7, plt>20k
- Maintain euglycemia with goal BG >100 and <180
- DVT ppx: LMWH
Pulmonary service will continue to follow along. Outpatient follow-up recommended for repeat imaging to follow-up pneumonia resolution as well as to monitor pulmonary nodules.
Total time spent today was 55 minutes for this encounter. Time includes reviewing laboratory test/imaging results, reviewing pertinent medical records, obtaining and reviewing medical history, performing an appropriate exam, ordering medications,
tests and procedures. Time also includes documentation of this encounter, coordinating patient care and communicating with other healthcare professionals. Total time does not include separately billed tests performed on this date of service.
Data:
CTA Chest 01/18/2024:
Moderate bibasilar airspace disease concerning for pneumonia, right greater than left.
Mild right hilar lymphadenopathy likely reactive
Pleural-based right middle lobe solid pulmonary nodule. Continued surveillance recommended
CXR 01/16/2024: Left basilar pneumonia.
[2024-01-20] MEDS: LOVENOX 40 MG SC (17:11)
[2024-01-20] MEDS: SYMBICORT 160/4.5 MCG INHALER 2 PUFF INH (20:14)
[2024-01-20] MEDS: TESSALON PERLES 200 MG PO (20:59)
[2024-01-20] MEDS: MUCINEX 1200 MG PO (20:59)
[2024-01-20] MEDS: PEPCID 20 MG PO (21:04)
[2024-01-20] MEDS: LIPITOR 40 MG PO (21:04)
[2024-01-21] VITALS (7 sets, daily range): BP systolic 108–144; BP diastolic 48–81; O2SAT 91–96
[2024-01-21] MEDS: STERILE WATER FOR INJECTION 10 ML IV ×3 (05:48→21:00)
[2024-01-21] MEDS: MAXIPIME 2000 MG IV ×3 (05:48→21:00)
--- NOTE | 2024-01-21 07:36 | W.PN.HOSP.TC ---
Today's Communication/Plan
-
cont abx steroids bronchodilators
wean O2 supplementation as tolerated
cont mucolytics incentive spirometer acapella
Home O2 assessment
Assessment / Plan
Assessment / Plan
Physical Exam
General: No Apparent Distress
HEENT: PERRLA
Respiratory: wheezing
Cardiac: S1/S2 and Regular Rhythm
GI: Soft and Non Tender
Musculoskeletal: No Edema
Skin: Warm and Dry; No Rash
Neuro: AO x 3
Psych: Calm
Mr. Jony Mahajan is a 73 yo man with hx HTN, HLD, prostate cancer in remission presents to the ER with shortness of breath. Patient was diagnosed with Covid on 01/02. His symptoms initially improved then got worse and he was seen at urgent care
and started on Cefdinir 5 days ago. He presents to the ER with worsening cough and shortness of breath, + fevers.
Triage VS: T 102.2, P 105, RR 18, BP 157/86, SpO2 90%
LABS: WBC 10.5, Hg 10.9, PLT 405, Na 139, K+ 4.0, BUN 38, Cr 0.9, Glucose 114, T. Bili 0.6, AST 112, ALT 107, Trop < 0.012, BNP 163
covid negative
IMPRESSION:
Left basilar pneumonia.
MAR: Cefepime/Vanco
Sepsis
Left Lower Lobe Pneumonia
Hypoxic Respiratory Insufficiency
-tele admit
-O2 support as needed, wean as tolerated
-s/p Vanc/Cefepime in ER. continue Cefepime Azithromycin
-MRSA swab, Legionall Ab testing and strep pneumo testing Negative
-Mucinex BID, Acapella
-CT chest appreciated no PE, pneumonia, right 5 mm pulm nodule known to patient follow up with primary recommended.
wheezing
-started prednisone 40 mg daily
-pulm eval appreciated
Transaminitis in setting of sepsis
-no abdominal pain
-trend
Essential Hypertension
-hold HOMEMAKER COMPANION HCTZ
-continue HOMEMAKER [employer]ION Amlodipine and Benazepril
Hyperlipidemia
-HOMEMAKER COMPANION Simvastatin
Prediabetic
-A1c 6.2
DVT PPx Lovenox subQ
FULL CODE
55 minutes spent on patient evaluation, medical decision making, coordination of care
Anticipated Discharge: 24 - 48 hours
Subjective/Interval History
-
Date of Service: January 21, 2024
Improving. Exertional/conversational dyspnea persists. Remains on oxygen supplementation.
Objective Data
-
Labs:
Laboratory Results
01/21/24
07:33
WBC Pending
Hgb Pending
Hct Pending
Plt Count Pending
Sodium Pending
Potassium Pending
Chloride Pending
Carbon Dioxide Pending
BUN Pending
Creatinine Pending
Glucose Pending
Calcium Pending
Total Bilirubin Pending
AST Pending
ALT Pending
Alkaline Phosphatase Pending
Vital Signs:
Vital Signs
Temp Pulse Resp BP Pulse Ox
98 F 82 20 144/81 94
01/21/24 07:33 01/21/24 07:33 01/21/24 07:33 01/21/24 07:33 01/21/24 07:33
I&O
01/20/24 01/21/24 01/22/24
06:59 06:59 06:59
Intake Total 360 / 360 960 / 960
Balance 360 / 360 960 / 960
[2024-01-21] MEDS: VISBIOME 1 CAP PO (07:43)
[2024-01-21] MEDS: TESSALON PERLES 200 MG PO ×2 (07:43→20:57)
[2024-01-21] MEDS: MUCINEX 1200 MG PO ×2 (07:43→20:56)
[2024-01-21] MEDS: DELTASONE 40 MG PO (07:44)
[2024-01-21] MEDS: ZESTRIL 20 MG PO (07:45)
[2024-01-21] MEDS: NORVASC 5 MG PO (07:45)
[2024-01-21 07:59] LABS: Hematocrit 30.6 % (39.0-52.0); Hemoglobin 10.5 g/dL (13.0-18.0); Mean Corp Hgb Conc. 34.3 g/dL (33.0-37.0); Mean Corpuscular Hgb 31.6 pg (27.0-31.0); Mean Corpuscular Volume 92.2 fL (80.0-94.0); Mean Platelet Volume 8.5 fL (7.4-10.4); Platelet Count 488 10^3/uL (130-400); Red Blood Cell Count 3.32 10^6/uL (4.70-6.10); Red Cell Dist. Width 12.6 % (11.5-14.5); White Blood Cell Count 7.5 10^3/uL (4.8-10.8)
[2024-01-21] MEDS: SYMBICORT 160/4.5 MCG INHALER 2 PUFF INH ×2 (08:23→19:12)
[2024-01-21] MEDS: XOPENEX 0.63 MG INHALANT SOLUTION INH ×3 (08:23→19:12)
[2024-01-21 08:32] LABS: ALT (SGPT) 132 U/L (0-50); AST (SGOT) 64 U/L (17-59); Albumin 3.6 g/dl (3.5-5.0); Alkaline Phosphatase 110 U/L (38-126); Blood Urea Nitrogen 36 mg/dl (9-20); Calcium 9.8 mg/dl (8.4-10.2); Carbon Dioxide 25 mmol/L (22-30); Chloride 107 mmol/L (98-107); Estimated Creatinine Clearance 94 ml/min; Glucose 107 mg/dl (70-99); Magnesium 2.3 mg/dl (1.6-2.3); Phosphorus 3.6 mg/dl (2.5-4.5); Potassium 4.3 mmol/L (3.5-5.1); Sodium 143 mmol/L (135-145); Total Bilirubin 0.5 mg/dl (0.2-1.3); Total Protein 6.9 g/dl (6.3-8.2); eGFR > 60.00
--- NOTE | 2024-01-21 09:46 | PTOTSP ---
pt currently demonstrates ability to complete simple ADLs, functional transfers, ambulation with no assistance. issued and reviewed education regarding energy conservation, pt verbalized understanding. no acute OT needs identified at this time, will
sign off.
--- NOTE | 2024-01-21 10:30 | W.PN.PUL3 ---
Today's Communication / Plan
-
Doing well, on IV abx
Home O2 eval, encouraged further IS and OOB
Can transition abx to PO course if improving
Outpatient FU and repeat imaging can be obtained
Discharge planning per team
Assessment
-
73-year-old male never smoker with a past medical history of hypertension, hyperlipidemia and prostate cancer currently in remission who presents with abnormal CXR + SOB. Patient reportedly diagnosed with COVID-19 on 01/03/2024. Symptoms worsened
and he went to urgent care [employer]AL [employer] and given cefdinir which she started 5 days [employer]AL [employer]. Also prescribed inhalers. Symptoms did not improve so he came to the ER. Initial vitals in the ER showed he was febrile to 102.2 �F, slightly tachycardic to 105 bpm,
breathing at 18 breaths/min, BP 157/86 and saturating 90% on room air. He was placed onto 2 L/min and saturations improved to 94%. Initial labs showed Hb 10.9, platelets 4 5, AST 112, ALT 107, troponin negative at <0.012 and COVID antigen
negative. Blood culture was collected. CXR showed left basilar pneumonia. He was given cefepime in the ER, as well as vancomycin/Zithromax as well as IVF with NS 0.9% x 500 cc. He was admitted to the hospitalist service, and required 4-5 L/min
nasal cannula. Pulmonary service now consulted for additional management/recommendations.
Impression:
#Bilateral lower lobe CAP
#Cough due to above
#Acute respiratory failure with hypoxia on supplemental oxygen
#Reported history of recent COVID-19 (diagnosed 01/03/2024)
#Multiple pulmonary nodules involving RLL + right oblique fissure (due to intrafissural lymph node)
#Anemia
#Transaminitis with elevated AST + ALT
Chronic conditions [employer]AL [employer]ER:
HTN, HLD,
Hx of prostate cancer in remission
Plan
Placed on 2L NC
Home O2 eval
He has been placed on O2 in past for respiratory infections including COVID
PNA noted on CT
Continue with broad-spectrum antibiotics
- Currently on cefepime; s/p 1.75g of zithromax (last dose 01/18)
- Would complete 7 days total of ABx assuming he continues to clinically improve and remains afebrile for 48 hours prior to stopping antibiotics
This can be transitioned to PO abx when stable for d/c
CT chest from 01/18/2024 shows lower lobe predominant bronchial wall thickening with bilateral lower lobe consolidations/patchy opacities/tree-in-bud nodules
Prednisone was started today at 40 mg daily - wean as tolerated
Mucolytics, encouraged IS
Continue nebulized bronchodilators - currently on xopenx --> will add Symbicort 160mcg that he should continue upon discharge until his cough has resolved
Continue prn xopenex (he was tachycardic from admission to 01/17)
DVT ppx: LMWH
Pulmonary service will continue to follow along.
Outpatient follow-up recommended for repeat imaging to follow-up pneumonia resolution as well as to monitor pulmonary nodules.
Discharge planning hopefully in next 24 hours if improving
Data:
CTA Chest 01/18/2024: Moderate bibasilar airspace disease concerning for pneumonia, right greater than left. Mild right hilar lymphadenopathy likely reactive. Pleural-based right middle lobe solid pulmonary nodule. Continued surveillance recommended
CXR 01/16/2024: Left basilar pneumonia.
-----
Total time spent today was 50 minutes for this encounter. Time includes reviewing laboratory test/imaging results, reviewing pertinent medical records, obtaining and reviewing medical history, performing an appropriate exam, ordering medications,
tests and procedures. Time also includes documentation of this encounter, coordinating patient care and communicating with other healthcare professionals. Total time does not include separately billed tests performed on this date of service.
Subjective Data
-
Date of Service:
Date of Service: January 21, 2024
Chief Complaint: Pulmonary Follow Up
Subjective:
Doing well, on minimal O2
No new complaints
Using IS, sitting in chair
Objective Data
Data Reviewed
Vital Signs / I&O / Oxygen:
Vital Signs
Temp Pulse Resp BP Pulse Ox
98 F 67 15 143/75 91
01/21/24 07:33 01/21/24 08:29 01/21/24 08:29 01/21/24 07:45 01/21/24 09:50
Intake and Output
01/20/24 01/21/24 01/22/24
06:59 06:59 06:59
Intake Total 360 / 360 960 / 960
Balance 360 / 360 960 / 960
SaO2 91
Nasal Cannula flow liters per 2
minute
Physical Exam
General: Comfortable and Other (NAD)
HEENT: Normocephalic, Anicteric and Moist Mucous Membranes
Cardiovascular: S1-S2 and Regular Rhythm
Respiratory: Crackles (b/l bases) and Non-Labored Respirations
GI: Soft, Non Distended and Non Tender
Neurology: Awake, Alert, Oriented, AO x 3 and No Motor Deficits
Skin: Warm, Dry and Good Color
Labs/Micro/Reports
Lab Data
01/21/24 07:33
01/21/24 07:33
Microbiology
01/16/24 21:06 Blood/Venous Blood Culture - Preliminary
No Growth in 4 days- Final report to follow
01/16/24 22:55 Nose MRSA Screen - Final
No Methicillin Resistant Staphylococcus aureus isolated.
--- NOTE | 2024-01-21 16:27 | CM ---
Patient seen at bedside.
PT recommendation - no needs.
Patient on 2L n/c
Respiratory therapy following.
ambulated 350 ft on room air sp02 91%
PLAN: Home with no anticipated needs.
[2024-01-21] MEDS: LOVENOX 40 MG SC (17:16)
[2024-01-21] MEDS: LIPITOR 40 MG PO (21:00)
[2024-01-21] MEDS: PEPCID 20 MG PO (21:00)
[2024-01-22] MEDS: MAXIPIME 2000 MG IV (05:02)
[2024-01-22] MEDS: STERILE WATER FOR INJECTION 10 ML IV (05:02)
[2024-01-22 05:13] VITALS: BMI 24.3
[2024-01-22] MEDS: ZESTRIL 20 MG PO (07:16)
[2024-01-22] MEDS: MUCINEX 1200 MG PO (07:16)
[2024-01-22] MEDS: TESSALON PERLES 200 MG PO (07:16)
[2024-01-22] MEDS: DELTASONE 40 MG PO (07:16)
[2024-01-22] MEDS: VISBIOME 1 CAP PO (07:16)
[2024-01-22] MEDS: NORVASC 5 MG PO (07:16)
[2024-01-22 07:22] VITALS: BP 142/70
--- NOTE | 2024-01-22 07:38 | W.PN.HOSP.TC ---
Addendum entered and electronically signed by Derrick Adame MD 01/25/24 09:27:
acute hypoxic respiratory failure resolved
Addendum entered and electronically signed by Derrick Adame MD 01/22/24 17:32:
HCTZ resumed on discharge
Addendum entered and electronically signed by Derrick Adame MD 01/22/24 15:44:
Correction, patient planned for short prednisone taper 30 mg day 1, 20 mg day 2, 10 mg day 3 then stop
Original Note:
Today's Communication/Plan
-
discharge
Assessment / Plan
Assessment / Plan
Physical Exam
General: No Apparent Distress
HEENT: PERRLA
Respiratory: clear to auscultation
Cardiac: S1/S2 and Regular Rhythm
GI: Soft and Non Tender
Musculoskeletal: No Edema
Skin: Warm and Dry; No Rash
Neuro: AO x 3
Psych: Calm
Mr. Jony Mahajan is a 73 yo man with hx HTN, HLD, prostate cancer in remission presents to the ER with shortness of breath. Patient was diagnosed with Covid on 01/02. His symptoms initially improved then got worse and he was seen at urgent care
and started on Cefdinir 5 days ago. He presents to the ER with worsening cough and shortness of breath, + fevers.
Triage VS: T 102.2, P 105, RR 18, BP 157/86, SpO2 90%
LABS: WBC 10.5, Hg 10.9, PLT 405, Na 139, K+ 4.0, BUN 38, Cr 0.9, Glucose 114, T. Bili 0.6, AST 112, ALT 107, Trop < 0.012, BNP 163
covid negative
IMPRESSION:
Left basilar pneumonia.
MAR: Cefepime/Vanco
Sepsis
Left Lower Lobe Pneumonia
Hypoxic Respiratory Insufficiency
-weaned off oxygen supplementation.
-s/p Vanc/Cefepime in ER. continue Cefepime Azithromycin
-MRSA swab, Legionall Ab testing and strep pneumo testing Negative
-Mucinex BID, Acapella
-CT chest appreciated no PE, pneumonia, right 5 mm pulm nodule known to patient follow up with primary recommended.
wheezing resolved
-started prednisone 40 mg daily to taper to 30 mg on discharge, 9 day taper reduce by 10 mg after ever 3rd day
-pulm eval appreciated symbicort added to be continued until cough resolves
01/21 Repeat CXR notes improving PNA, stable atelectasis, distended esophagus possibly d/t reflux disease vs distal esophageal mass.
Based on above CXR, radiology reviewed recent CT chest and noted concern for mural thickening GE junction possible d/t esophagitis vs mural mass vs small hiatal hernia
GI eval inpt vs outpt, patient however eager to go home today.
Transaminitis in setting of sepsis
-no abdominal pain
-trend, resolving
Essential Hypertension
-hold INTEGRATION ARCHITECT HCTZ (bp relatively well controlled w/o)
-continue INTEGRATION ARCHITECT Amlodipine and Benazepril
Hyperlipidemia
-INTEGRATION ARCHITECT Simvastatin
Prediabetic
-A1c 6.2
DVT PPx Lovenox subQ
FULL CODE
Medically stable for discharge home with outpatient follow up recommendations.
Total Time Preparing Discharge ___40____ minutes including examination of the patient, summary of the hospital stay, instructions for continuing care to all relevant caregivers; and preparation of discharge records, prescriptions, and referral
forms if necessary.
Anticipated Discharge: Today
Subjective/Interval History
-
Date of Service: January 22, 2024
Seen and examined at bedside in no acute distress sitting up comfortably in chair. Weaned off oxygen supplementation. Patient reports feeling well, cough and breathing improved. Denies new acute issues. Eager to go home.
Objective Data
-
Labs:
Laboratory Results
01/22/24
06:52
WBC Pending
Hgb Pending
Hct Pending
Plt Count Pending
Sodium Pending
Potassium Pending
Chloride Pending
Carbon Dioxide Pending
BUN Pending
Creatinine Pending
Glucose Pending
Calcium Pending
Total Bilirubin Pending
AST Pending
ALT Pending
Alkaline Phosphatase Pending
Vital Signs:
Vital Signs
Temp Pulse Resp BP Pulse Ox
98.1 F 71 20 142/70 97
01/22/24 07:22 01/22/24 07:22 01/22/24 07:22 01/22/24 07:22 01/22/24 07:22
I&O
01/21/24 01/22/24 01/23/24
06:59 06:59 06:59
Intake Total 960 / 960 1570 / 1570
Balance 960 / 960 1570 / 1570
[2024-01-22 07:58] LABS: Hematocrit 31.5 % (39.0-52.0); Hemoglobin 10.7 g/dL (13.0-18.0); Mean Corpuscular Hgb 31.8 pg (27.0-31.0); Mean Corpuscular Volume 93.8 fL (80.0-94.0); Mean Platelet Volume 8.6 fL (7.4-10.4); Platelet Count 525 10^3/uL (130-400); Red Blood Cell Count 3.36 10^6/uL (4.70-6.10); Red Cell Dist. Width 12.9 % (11.5-14.5); White Blood Cell Count 7.5 10^3/uL (4.8-10.8)
[2024-01-22] MEDS: XOPENEX 0.63 MG INHALANT SOLUTION INH ×2 (08:13→13:02)
[2024-01-22] MEDS: SYMBICORT 160/4.5 MCG INHALER 2 PUFF INH (08:13)
[2024-01-22 08:54] LABS: ALT (SGPT) 113 U/L (0-50); AST (SGOT) 55 U/L (17-59); Albumin 3.7 g/dl (3.5-5.0); Alkaline Phosphatase 94 U/L (38-126); Blood Urea Nitrogen 36 mg/dl (9-20); Calcium 9.5 mg/dl (8.4-10.2); Carbon Dioxide 24 mmol/L (22-30); Chloride 107 mmol/L (98-107); Estimated Creatinine Clearance 73 ml/min; Glucose 91 mg/dl (70-99); Magnesium 2.3 mg/dl (1.6-2.3); Phosphorus 3.9 mg/dl (2.5-4.5); Potassium 4.3 mmol/L (3.5-5.1); Sodium 144 mmol/L (135-145); Total Bilirubin 0.5 mg/dl (0.2-1.3); Total Protein 6.8 g/dl (6.3-8.2); eGFR > 60.00
--- NOTE | 2024-01-22 09:10 | W.PN.PUL3 ---
Addendum entered and electronically signed by Taniya Van, DO 01/22/24 14:44:
We will sign off at this time, please call with questions
Original Note:
Today's Communication / Plan
-
Does not require O2 at rest or with exertion
CXR this AM showing improvement of PNA
Can transition IV abx to PO, prednisone taper
Outpatient pulmonary FU recommended, info left in chart
Discharge planning per team
Assessment
-
73-year-old male never smoker with a past medical history of hypertension, hyperlipidemia and prostate cancer currently in remission who presents with abnormal CXR + SOB. Patient reportedly diagnosed with COVID-19 on 01/03/2024. Symptoms worsened
and he went to urgent care [facility] and given cefdinir which she started 5 days [facility] [employer]. Also prescribed inhalers. Symptoms did not improve so he came to the ER. Initial vitals in the ER showed he was febrile to 102.2 �F, slightly tachycardic to 105 bpm,
breathing at 18 breaths/min, BP 157/86 and saturating 90% on room air. He was placed onto 2 L/min and saturations improved to 94%. Initial labs showed Hb 10.9, platelets 4 5, AST 112, ALT 107, troponin negative at <0.012 and COVID antigen
negative. Blood culture was collected. CXR showed left basilar pneumonia. He was given cefepime in the ER, as well as vancomycin/Zithromax as well as IVF with NS 0.9% x 500 cc. He was admitted to the hospitalist service, and required 4-5 L/min
nasal cannula. Pulmonary service now consulted for additional management/recommendations.
Impression:
#Bilateral lower lobe CAP
#Cough due to above
#Acute respiratory failure with hypoxia on supplemental oxygen
#Reported history of recent COVID-19 (diagnosed 01/03/2024)
#Multiple pulmonary nodules involving RLL + right oblique fissure (due to intrafissural lymph node)
#Anemia
#Transaminitis with elevated AST + ALT
Chronic conditions [facility]:
HTN, HLD,
Hx of prostate cancer in remission
Plan
Placed on 2L NC, satting >95%
Home O2 eval--96% on RA, O2 tania 91%--does not require O2
He has been placed on O2 in past for respiratory infections including COVID
Can wean to off
PNA noted on CT
Continue with broad-spectrum antibiotics
- Currently on cefepime; s/p 1.75g of zithromax (last dose 01/18)
- Would complete 7 days total of ABx assuming he continues to clinically improve and remains afebrile for 48 hours prior to stopping antibiotics
This can be transitioned to PO abx when stable for d/c
CXR showing improvement
CT chest from 01/18/2024 shows lower lobe predominant bronchial wall thickening with bilateral lower lobe consolidations/patchy opacities/tree-in-bud nodules
Prednisone was started today at 40 mg daily - wean as tolerated/taper at discharge
Mucolytics, encouraged IS
Continue nebulized bronchodilators - currently on xopenx --> will add Symbicort 160mcg that he should continue upon discharge until his cough has resolved
Continue prn xopenex (he was tachycardic from admission to 01/17)
DVT ppx: LMWH
Encouraged OOB, PT/OT
Outpatient follow-up recommended for repeat imaging to follow-up pneumonia resolution as well as to monitor pulmonary nodules.
Discharge planning hopefully in next 24 hours if improving
Data:
CTA Chest 01/18/2024: Moderate bibasilar airspace disease concerning for pneumonia, right greater than left. Mild right hilar lymphadenopathy likely reactive. Pleural-based right middle lobe solid pulmonary nodule. Continued surveillance recommended
CXR 01/16/2024: Left basilar pneumonia.
-----
Total time spent today was 37 minutes for this encounter. Time includes reviewing laboratory test/imaging results, reviewing pertinent medical records, obtaining and reviewing medical history, performing an appropriate exam, ordering medications,
tests and procedures. Time also includes documentation of this encounter, coordinating patient care and communicating with other healthcare professionals. Total time does not include separately billed tests performed on this date of service.
Subjective Data
-
Date of Service:
Date of Service: January 22, 2024
Chief Complaint: Pulmonary Follow Up
Subjective:
no events ON, remains on O2 but does not require it
no new complaints
Objective Data
Data Reviewed
Vital Signs / I&O / Oxygen:
Vital Signs
Temp Pulse Resp BP Pulse Ox
98.1 F 83 18 142/70 95
01/22/24 07:22 01/22/24 08:16 01/22/24 08:16 01/22/24 07:22 01/22/24 08:16
Intake and Output
01/21/24 01/22/24 01/23/24
06:59 06:59 06:59
Intake Total 960 / 960 1570 / 1570
Balance 960 / 960 1570 / 1570
SaO2 95
Nasal Cannula flow liters per 2
minute
Physical Exam
General: Comfortable and Other (NAD)
HEENT: Normocephalic, Anicteric and Moist Mucous Membranes
Cardiovascular: S1-S2 and Regular Rhythm
Respiratory: Clear and Non-Labored Respirations
GI: Soft, Non Distended and Non Tender
Neurology: Awake, Alert, Oriented, AO x 3 and No Motor Deficits
Skin: Warm, Dry and Good Color
Labs/Micro/Reports
Lab Data
01/22/24 06:52
01/22/24 06:52
Microbiology
01/22/24 05:09 Sputum Respiratory Culture - Final
01/22/24 05:09 Sputum Gram Stain - Final
01/16/24 21:06 Blood/Venous Blood Culture - Final
No Growth - Final Report
--- NOTE | 2024-01-22 12:34 | CM ---
Addendum entered by Belem Ham 01/22/24 12:38:
to transport.
Original Note:
Patient seen at bedside. IMM explained & signed. Placed in chart
Pulmonary in to see patient.
CXR done today
PLAN: home no needs anticipated.
[2024-01-22] MEDS: OMNICEF 300 MG PO (13:29)
--- NOTE | 2024-01-22 14:44 | CON.GI ---
Addendum entered and electronically signed by Melissa Lemon Do, MD 01/22/24 16:53:
I saw and examined the patient.
The [employer]'s note was reviewed and I agree with the note.
Comment: Jony is a 73yo M with h/o prostate cancer and HTN who was admitted for SOB and PNA. GI consulted on day of discharge for abnormal CT chest and CXR with possible thickening of distal LES. He has no dysphagia or wt loss. He does have
reflux and on pepcid daily basis. Vitals stable. Exam ambulatory steady gait obese abdomen NTTP. Labs reviewed No prior EGD
He is eager for hosp d/c today
Impression
- GERD with abnormal CT chest/UGI at [facility]
suspect esophagitis, hernia or occult lesion
- PNA
- H/o prostate cancer
- Rare rectal bleeding
Recommendations
- C/w H2B
- Add PPI
- OP FU in our GI office
- Anticipate EGD and flex sigm to be set up then when respiratory status is improved
Will sign off please call with questions
Original Note:
Consultation
-
Date/Time Consultation Requested: 01/22/24 1300
Date/Time Consultation Performed: 01/22/24 1445
Requesting Provider: Bianca Adame MD
Performing Provider: ADELSO Hinson, Melissa Junior MD
Reason for Consultation: abnormal imaging
Medical History
Chief Complaint / HPI
Chief Complaint: abnormal imaging
History of Present Illness:
Pt is a 73yo with hx prostate CA with prior prostate in remission , HTN, hypercholesterolemia, covid 01/02 with evaluation at Urgent care. He did take Paxlovid but continued and presented for admission with shortness of breath. He is feeling
better but imaging noted with CT chest 01/17 with concern for PNA but also distention of esophagus with questionable nodular mural thickening of margin of distal esophagus at GE junction vs small HH, esophagitis vs mural mass. follow up CXR with
01/21 with similar finding with distended esophagus with air fluid level. Can be seen with delayed emptying distal mass not excluded. hbg 10.7 with mild anemia.
In reviewing with patient he admits to hx GERD with famotidine use. If he misses medication will have symptoms. He denies dysphagia, odynophagia, wt loss, hematemesis, nausea, vomiting, abdominal pain, diarrhea, constipation or black stools.
He also does admits to rectal bleeding. He saw red blood for 1 day and contacted his MD at [facility] with hx prostate CA. He is scheduled in February for GI at [place]. Last colonoscopy with Dr. Law 2 years ago pt recalls as stable.
Past Medical History
Past Medical History: Cancer (prostate CA in remission ), HTN, Hypercholesterolemia and Other (covid 01/03/24 )
Social History
Tobacco: Non-Smoker
Alcohol: Daily (1 drink daily )
Drug: None
Personal:
Living: With Family
Employment: Retired
Family History
Family History: Other (uncle with colon Ca age 39)
Allergies / Home Medications
Allergy/AdvReac Type Severity Reaction Status Date / Time
No Known Allergies Allergy Unverified 01/16/24 17:13
�Medication �Instructions �Recorded
albuterol sulfate 90 mcg/actuation 2 puff inhalation R QIDPRN PRN 01/16/24
aerosol inhaler cough
amlodipine 5 mg tablet 5 mg PO DAILY 01/16/24
benazepril 20 mg tablet 20 mg PO DAILY 01/16/24
cefdinir 300 mg capsule 300 mg PO BID 01/16/24
cholecalciferol (vitamin D3) 25 25 mcg PO DAILY 01/16/24
mcg (1,000 unit) tablet
diphenhydramine HCl 25 mg capsule 25 mg PO HS 01/16/24
(Benadryl)
famotidine 20 mg tablet 20 mg PO HS 01/16/24
hydrochlorothiazide 25 mg tablet 25 mg PO DAILY 01/16/24
metformin 1,000 mg tablet 1,000 mg PO .SEE BELOW 01/16/24
simvastatin 80 mg tablet 80 mg PO HS 01/16/24
Review of Systems
-
History Source: Patient
Constitutional: Reports No Symptoms
EENT: Reports No Symptoms
Respiratory: Reports Cough and Trouble Breathing (some improvement since admission )
Cardiac: Reports No Symptoms
Abdomen/GI: Reports No Symptoms
: Reports No Symptoms
Musculoskeletal: Reports No Symptoms
Skin: Reports No Symptoms
Neurological: Reports Weakness
Endocrine: Reports No Symptoms
Hematologic/Lymphatic: Reports Bleeding
Vital Signs
Temp Pulse Resp BP Pulse Ox
98.1 F 83 18 142/70 96
01/22/24 07:22 01/22/24 08:16 01/22/24 08:16 01/22/24 07:22 01/22/24 13:26
Physical Exam
Exam
General: Well Developed, Well Nourished and No Apparent Distress
HEENT: Normocephalic and Anicteric
Respiratory: Wheezes and Other (cough with shortness of breath )
Cardiac: Regular Rhythm and Peripheral Edema (trace with out of bed )
GI: Soft, Non Tender and Non Distended
Musculoskeletal: No Clubbing and No Cyanosis
Skin: Warm and Dry
Neuro: Awake, Alert and AO x 3
Psych: Calm
Results
WBC 7.5 10^3/uL (4.8-10.8) 01/22/24 06:52
Hgb 10.7 g/dL (13.0-18.0) L 01/22/24 06:52
Hct 31.5 % (39.0-52.0) L 01/22/24 06:52
MCV 93.8 fL (80.0-94.0) 01/22/24 06:52
Plt Count 525 10^3/uL (130-400) H 01/22/24 06:52
Absolute Neuts (auto) 11.9 10^3/uL (1.4-6.5) H 01/17/24 09:24
Sodium 144 mmol/L (135-145) 01/22/24 06:52
Potassium 4.3 mmol/L (3.5-5.1) 01/22/24 06:52
Chloride 107 mmol/L (98-107) 01/22/24 06:52
Carbon Dioxide 24 mmol/L (22-30) 01/22/24 06:52
BUN 36 mg/dl (9-20) H 01/22/24 06:52
Creatinine 0.9 mg/dL (0.7-1.3) 01/22/24 06:52
Calcium 9.5 mg/dl (8.4-10.2) 01/22/24 06:52
Total Bilirubin 0.5 mg/dl (0.2-1.3) 01/22/24 06:52
AST 55 U/L (17-59) 01/22/24 06:52
ALT 113 U/L (0-50) H 01/22/24 06:52
Alkaline Phosphatase 94 U/L (38-126) 01/22/24 06:52
Diagnostic Image Results:
01/22/24 CXR
Moderate right lower lobe atelectasis with probable mild right lower lobe pneumonia. The pneumonia is much improved. The atelectasis is stable
Distended esophagus with an air-fluid level. New. This can be seen with reflux disease of delayed emptying of the esophagus. A distal esophageal mass cannot be excluded. See recent CT examination report.
01/18/24 CT Chest Pe Study
Moderate bibasilar airspace disease concerning for pneumonia, right greater than left.
Mild right hilar lymphadenopathy likely reactive
Pleural-based right middle lobe solid pulmonary nodule. Continued surveillance recommended
Findings of the GE junction raising concern for mural thickening as can be seen with esophagitis or a mural mass. This would better be evaluated by upper GI examination or direct visualization. Findings related to the small hiatal hernia cannot be
excluded.
Prior GI Procedures:
EGD: none
Colonoscopy: age 72 normal per pt recall with Dr. Law
Assessment / Plan
-
Pt is a 73yo with hx prostate CA with prior prostate in remission , HTN, hypercholesterolemia, covid 01/02 with evaluation at Urgent care. He did take Paxlovid but continued and presented for admission with shortness of breath. He is feeling
better but imaging noted with CT chest 01/17 with concern for PNA but also distention of esophagus with questionable nodular mural thickening of margin of distal esophagus at GE junction vs small HH, esophagitis vs mural mass. follow up CXR with
01/21 with similar finding with distended esophagus with air fluid level. Can be seen with delayed emptying distal mass not excluded. hbg 10.7 with mild anemia.
-abnormal imaging with distention of esophagus with questions nodular mural thickening distal esophagus
-hypoxemia with recent covid and PNA on admission
-CT chest with mild right hilar lymphadenopathy in CT chest
-rectal bleeding
-GERD
-anemia
-increased LFT's - improving
-hx prostate CA with prior radiation and hormonal therapy
PLAN:
etiology of distal esophageal thickening/distention related to mass, esophagitis vs other
reviewed options of inpatient EGD vs outpatient as still with some cough and course breath sounds on exam
pt prefers OP follow up with resp status further optimized
I sent message to arrange 3-4 week follow up in office to set up for EGD
pt also with recent rectal bleeding - radiation proctitis vs other- he is scheduled in February with [facility]-- reviewed with patient can consider flex vs colon with EGD he prefers flex to eval for radiation proctitis-- bleeding now improved but
advised to call if any recurrent symptoms
hbg stable
LFT elevation on admission may be recent covid vs sepsis/PNA related improved trend on discharge
call with questions
-
-
Thank you for consultation and allowing me to participate in the patient's care. Please call the electronic wirer GI physician during the after hours with any questions or concerns.
[2024-01-22 15:25] VITALS: BP 146/73
[2024-01-22 15:41] VITALS: O2SAT 94
--- NOTE | 2024-01-22 15:45 | W.DCSUMMARY ---
Discharge Summary
Discharge Data
Date of Admission: 01/16/24
Date of Discharge: 01/22/24
-
Pending Results: No
Discharge Plan
-
Patient Disposition: Home (Routine Discharge)
Discharge Diagnosis/Procedures: Sepsis Pneumonia
Acute Hypoxic Respiratory Insufficiency Resolved
Atelectasis
Distended esophagus possibly due to reflux disease vs distal esophageal mass vs small hiatal hernia
Transaminitis due to sepsis (resolving)
Hypertension
Hyperlipidemia
Prediabetes
Mild Anemia
Pulmonary Nodule
Condition: Fair
Diet: Regular
Activity: As tolerated
Driving Restrictions: As prior to admission
Bathing Restrictions: None
Blood Work: Please repeat CBC and CMP with primary care provider in 1 week of discharge.
Others Tests: Pulmonary function tests with Pulmonology in 4-6 weeks of discharge
Activity Restrictions/Additional Instructions:
Please follow up with primary care provider in 1 week of discharge, GI in two weeks of discharge, and Pulmonary in 4-6 weeks of discharge.
Tessalon Perle as needed, mucinex, and symbicort have been prescribed for cough. Ok to discontinue when cough resolves
For Pneumonia, Cefdinir has been prescribed for one more day. Ok to discontinue after 01/22.
Short Prednisone taper has been prescribed: 30 mg day 1, then 20 mg day 2, then 10 mg day 3, then stop
Please take medications as prescribed/recommended and follow up with primary care provider and/or other healthcare provider involved in your care for refills and/or further adjustment to your medication regimen as necessary.
Referrals:
Melissa Junior MD [Active] - in two weeks
Thaddeus Bangura MD [Active] - in four to six weeks (PFTs on day of office visit)
Osmar Altamirano MD [Family Provider] - in one week
Prescriptions:
New
guaifenesin 600 mg Tablet Extended Release 12hr
1,200 mg PO Q12 7 Days Qty: 28 0RF
budesonide-formoterol [Symbicort] 160-4.5 mcg/actuation Hfa Aerosol Inhaler
2 puff inhalation R BID Qty: 10.2 0RF
benzonatate 100 mg Capsule
200 mg PO BID PRN (Reason: cough) Qty: 14 0RF
prednisone 10 mg Tablet
See Rx Instructions .ROUTE .COMPLEX Qty: 6 0RF
Rx Instructions:
Take By Mouth:
30 mg day 1, 20 mg day 2, 10 mg day 3, then stop
Continued
amlodipine 5 mg tablet
5 mg PO DAILY
simvastatin 80 mg tablet
80 mg PO HS
famotidine 20 mg Tablet
20 mg PO HS
diphenhydramine HCl [Benadryl] 25 mg Capsule
25 mg PO HS
metformin 1,000 mg tablet
1,000 mg PO .SEE BELOW
Patient Comments:
01/16/2024: Pt states he does not have diabetes, and is taking this for his prostate. Pt would not disclose how often he takes this medication. Pt has not taken recently due to med giving him diarrhea. Pt does not want to take this while in the
hospital.
benazepril 20 mg tablet
20 mg PO DAILY
hydrochlorothiazide 25 mg tablet
25 mg PO DAILY
albuterol sulfate 90 mcg/actuation HFA aerosol inhaler
2 puff INHALATION R QIDPRN PRN (Reason: cough)
cholecalciferol (vitamin D3) 25 mcg (1,000 unit) Tablet
25 mcg PO DAILY
cefdinir 300 mg capsule
300 mg PO BID Qty: 3 0RF
Rx Instructions:
Continue through 01/23/24 then stop
Discharge Orders:
Discharge Patient (As Directed); Ordered 01/22/24
Ordered By: Derrick Adame
Discharge Date and Time
Print Language: GERMAN
[2024-01-22 15:48] VITALS: O2SAT 94
--- NOTE | 2024-01-23 10:16 | PN.CDI ---
CDI
- -
CDI:
Physician Documentation Request
Admit Date: 01/16/24 21:23
Dear Doctor Deep,
Patient admitted for sepsis.
01/20 Pulmonary PN: 'Acute respiratory failure with hypoxia on supplemental oxygen'
01/21 Hospitalist PN: 'Left Lower Lobe Pneumonia, Hypoxic Respiratory Insufficiency -weaned off oxygen supplementation.'
Selected Entries
01/16/24
22:30 01/17/24
11:05 01/18/24
10:07
Nasal Cannula flow liters per minute 4 5 5
Clarify which of the following accurately represents the patient's respiratory status:
Acute hypoxic respiratory failure
Acute hypoxic respiratory insufficiency
Other
Additional information for Respiratory Failure:
Recognized criteria for Respiratory Failure (Source: [facility] Mar 2013)
ABGs: (1 or more) Symptoms Please indicate type if known
1. p)2 <60 or RA SPO2 <91% on RA 1. Tachypnea, SOB, dyspnea Hypoxic
2. pCO2 50 and pH <7.35 2. Use of accessory muscles Hypercapnic
3. pO2 decrease of pCO2 increase by 3. Pallor or cyanosis Hypoxic and Hypercapnic
10 mmHg from baseline if known 4. Anxiety or restlessness Unable to determine
5. Unable to speak in full sentences
Supplemental O2 of > 40% (5LPM) Intubation is not required
Use of terms such as suspected, likely, concern for, or probable (associated with a specific diagnosis that is being evaluated, monitored, or treated as if it exists) are acceptable and can be coded in the inpatient setting, when documented at the
time of discharge.
Thank you,
Abigail Rincon RN, BSN
CDI Specialist
Available via [employer] text
Please use your independent medical judgment in providing your response.
== END 2024-01-22 16:46 | disposition home or self-care (01) | DRG 871 ==
LOC: 4 WEST ACU 21:23
PROVIDERS: Emergency Medicine; ADMITTING PHYSICIAN Student in an Organized Health Care Education/Training Program; ATTENDING PHYSICIAN Internal Medicine; CONSULT PHYSICIAN Internal Medicine Critical Care Medicine; CONSULT PHYSICIAN Internal Medicine Gastroenterology; EMERGENCY PHYSICIAN Student in an Organized Health Care Education/Training Program; FAMILY PHYSICIAN Internal Medicine Cardiovascular Disease
DX: A41.9 Sepsis, unspecified organism (principal); J18.9 Pneumonia, unspecified organism; J96.01 Acute respiratory failure with hypoxia; J98.11 Atelectasis; Z11.52 Encounter for screening for COVID-19; I10 Essential (primary) hypertension; R06.89 Other abnormalities of breathing
CPT/HCPCS: 71046; 71275; 80053; 82248; 83036; 83605; 83735; 83880; 84100; 84484; 85025; 85027; 87040; 87070; 87205; 87449; 87811; 87899; 93005; 94640; 94761; 96365; 96367; 96375; 97162; 97165; 99285; Q9967

== ENCOUNTER → 2024-04-02 06:40 | Day surgery (SDC) | payer MEDICARE, SELFPAY | LOC: GI 06:40 | PROVIDERS: ATTENDING PHYSICIAN Internal Medicine Gastroenterology | DX: K62.5 Hemorrhage of anus and rectum (principal); K64.8 Other hemorrhoids; R12 Heartburn; K22.89 Other specified disease of esophagus; K44.9 Diaphragmatic hernia without obstruction or gangrene; K31.89 Other diseases of stomach and duodenum; R93.3 Abnormal findings on diagnostic imaging of other parts of digestive tract; K29.50 Unspecified chronic gastritis without bleeding; B37.81 Candidal esophagitis; Z85.46 Personal history of malignant neoplasm of prostate | CPT/HCPCS: 45330; 43239; 88305; 88312; 87220; 88342 ==